=== PATIENT | female | born 1940 | race Caucasian/White ===

== ENCOUNTER 2020-01-04 18:45 | Inpatient (IN) | payer MEDICARE, OTHER ==
[~2020-01-04] VITALS: Ht 162.6 cm; Wt 43.1 kg
[2020-01-04] MEDS ORDERED: ZIPRASIDONE MESYLATE 20 MG VIAL IM ONE ×3 (19:55→22:00)
[2020-01-04 20:07] LABS: BASOPHILS # (AUTO) 0.1 K/uL (0.0-8.0); BASOPHILS % (AUTO) 0.7 % (0.0-2.0); EOSINOPHILS # (AUTO) 0.1 K/uL (0.0-0.7); EOSINOPHILS % (AUTO) 1.2 % (0.0-7.0); HEMATOCRIT 34.3 % (31.2-41.9); HEMOGLOBIN 11.3 g/dL (10.9-14.3); LYMPHOCYTES # (AUTO) 2.1 K/uL (20.0-40.0); LYMPHOCYTES % (AUTO) 22.5 % (20.5-51.5); MEAN CORPUSCULAR HEMOGLOBIN 31.8 uug (24.7-32.8); MEAN CORPUSCULAR HGB CONC 33 g/dL (32.3-35.6); MEAN CORPUSCULAR VOLUME 96.6 fL (75.5-95.3); MONOCYTES # (AUTO) 0.8 K/uL (2.0-10.0); MONOCYTES % (AUTO) 8.8 % (0.0-11.0); NEUTROPHILS # (AUTO) 6.2 K/uL (1.8-8.9); NEUTROPHILS % (AUTO) 66.8 % (38.5-71.5); PLATELET COUNT (AUTO) 190 K/uL (179-408); RED BLOOD CELL COUNT(AUTO) 3.55 MIL/uL (3.63-4.92); WHITE BLOOD COUNT (AUTO) 9.2 K/uL (3.8-11.8)
[2020-01-04 20:12] LABS: CARBON DIOXIDE 29 mmol/L (21-32); CHLORIDE 109 mmol/L (98-107); CREATININE 1.3 mg/dL (0.6-1.3); GLUCOSE 97 mg/dL (74-106); UREA NITROGEN, BLOOD 21 mg/dL (7-18)
[2020-01-04 20:17] LABS: ACETAMINOPHEN < 2.0 ug/mL (10-30); ALANINE AMINOTRANSFERASE 13 U/L (14-59); ALKALINE PHOSPHATASE 83 U/L (50-136); ASPARTATE AMINOTRANSFERASE 14 U/L (15-37); BILIRUBIN,DIRECT 0.1 mg/dL (0.0-0.2); BILIRUBIN,TOTAL 0.3 mg/dL (0.2-1.0); TOTAL PROTEIN, SERUM 7.8 g/dL (6.4-8.2)
--- NOTE | 2020-01-04 20:20 | NUR ---
Medically cleared by DR Carvajal. Called Pinky from PET TEAM to eval patient.
[2020-01-04] MEDS ORDERED: VITA-287 PO (20:32)
[2020-01-04] MEDS ORDERED: MIRT15TA PO (20:32)
[2020-01-04] MEDS ORDERED: DIVA125C2 PO (20:32)
[2020-01-04] MEDS ORDERED: ACET-2154 PO (20:32)
[2020-01-04] MEDS ORDERED: ASCO500P18 PO (20:32)
[2020-01-04] MEDS ORDERED: folic acid PO (20:32)
[2020-01-04] MEDS ORDERED: NITR100C11 PO (20:32)
[2020-01-04] MEDS ORDERED: LEVO100T10 PO (20:32)
[2020-01-04 20:42] LABS: ETHANOL < 3 MG/DL (0-0)
--- NOTE | 2020-01-04 23:09 | NUR ---
Patient in bed, O2 saturation 97% on room air. Patient is not hypoxic and is breathing well.
--- NOTE | 2020-01-05 01:00 | NUR ---
Juju from Lab at [facility] called to provide test results for COVID. Test result = (-).
--- NOTE | 2020-01-05 01:14 | NUR ---
Report given to JAMI Vasquez.
[2020-01-05] MEDS ORDERED: MAG HYDROX/AL HYDROX/SIMETH 30 ML LIQUID UDC PO PRN (01:45)
[2020-01-05] MEDS ORDERED: TEMAZEPAM 7.5 MG CAPSULE PO PRN (01:45)
[2020-01-05] MEDS ORDERED: MAGNESIUM HYDROXIDE 30 ML LIQUID UDC PO PRN (01:45)
[2020-01-05] MEDS ORDERED: ACETAMINOPHEN 325 MG TABLET PO PRN (01:45)
--- NOTE | 2020-01-05 02:01 | NUR ---
Patient transported to MHU in stable condition.
--- NOTE | 2020-01-05 02:25 | NUR ---
GPS/ Admit pt to MHU under the care of Dr. Fraser and Dr. Fulton.
[2020-01-05 02:37] VITALS: BP 161/79
--- NOTE | 2020-01-05 03:08 | NUR ---
Admission Note: 79 y.o. female brought to MHU from ER via gurney accompanied by ER staff. Pt admitted on a 5150 for GD under the care of Dr Fraser and Dr Holm. with a dx of Psychosis. According to the 5150, Pt came to [facility] from [facility] for unmanageable behavior. Pt was loud, screaming, yelling, confused, disorganized, and disoriented. Pt was refusing care at her facility, non-compliant with medications, is paranoid and hearing voices. Pt thinks the FBI is listening to her, and she is leaving the facility at night unsupervised and having verbal altercations with other residents. Pt has poor insight, impaired judgement, and no viable plan for self care. Upon face to face assessment, Pt is alert and oriented to herself only, she received an IM of Geodon 15mg for aggressive and combative behavior in out ER at 2200. Pt appears restless and hyperactive, and states the reason she is here is "for a test." Pt was yelling and screaming upon entering the unit and fixated on her purse. Pt appears to reflect what is on the Hold, as she is violent, aggressive, combative, and refuses to obey instructions for safety. Affect is elevated, mood is anxious, thought process is disorganized, disoriented, and confused. Pt refused any prn or other calming measures and screamed for a short while before falling asleep. Pt denies an access to firearms or any legal hx, No reported h/o current or prior smoking or substance abuse issues. Uncooperative with admission process and unable/unwilling to sign paperwork, co-signed with staff. Skin assessment completed-c/d/i with redness noted to BLE. Medical h/o COPD, Dorsalgia, hypothyroidism, anemia, MDD, bipolar d/o, cataracts, UTI, alzheimer's dementia, and anxiety, NKA noted. Dr Fraser and Dr Holm notified of admission, meds to be reconciled, orders received. Pt belongings inventoried, contraband placed in unit locker. Unable to obtain information and permission for contact information for next of kin notification. Patient Rights handbook and Advisement given to Pt rights and unit rules explained to Pt, she will need reinforcement due to unmanageable behavior. Pt oriented to the unit, the phone, the restrooms, and her room. Q 15 minute rounding initiated for safety.
--- NOTE | 2020-01-05 06:02 | NUR ---
Jeovanny Fitzgerald paged through [email or web address] regarding med recon, he stated he would reconcile.
[2020-01-05 09:06] LABS: THYROID STIMULATING HORMONE 2.199 mIU/mL (0.358-3.740)
[2020-01-05 10:13] VITALS: BP 139/95
--- NOTE | 2020-01-05 10:38 | NUR ---
JUAN DIEGO Public Guardian Contact: JUAN DIEGO left a voicemail for Public Guardian Sandi ([phone]) to discuss treatment and discharge plan, as well as request documentation. Waiting for a call back.
--- NOTE | 2020-01-05 10:38 | NUR ---
JUAN DIEGO Initial Discharge Plan: Patient resides at [facility] [place] [address] . JUAN DIEGO spoke with Janie at the facility who confirmed patient is accepted back upon discharge. Patient has a Public Guardian Sandi ([phone]). JUAN DIEGO will continue to work with patient, family, and MD to ensure a safe and proper discharge plan.
--- NOTE | 2020-01-05 10:40 | NUR ---
Firearms Report: Atmospheric Technician completed and submitted a [employer] firearms report for 5150 grave disability certification. A copy of report has been placed in patient chart.
[2020-01-05] MEDS: ENSURE ENLIVE (VAN) 240 ML LIQUID PO SCH ×2 (12:49→16:40)
[2020-01-05] MEDS: DIVALPROEX SPRINKLE 125 MG CAP.SPRINK PO SCH ×2 (13:56→16:40)
[2020-01-05 16:36] VITALS: BP 112/70
--- NOTE | 2020-01-05 17:49 | NUR ---
patient is confused and disoriented agitated and restless, up to wheel chair attempted to get out of unit at all time,refused to attended in group activity.
[2020-01-05 20:18] VITALS: BP 130/89
--- NOTE | 2020-01-05 22:56 | NUR ---
GPS: Pt.is asleep at this time. In no form of distress noted. Pt.was anxious,restless and was voicing desire to leave the unit. Re-directed and re-assured frequently. Poor insight to present situation. Confused,disoriented. Will continue to monitor.
[2020-01-06] MEDS: LORAZEPAM 0.5 MG TABLET PO PRN ×2 (04:22→22:45)
--- NOTE | 2020-01-06 05:59 | NUR ---
GPS: Pt.is up on a gerichair in front of nurses station for safety. Has episodes of trying to get up unassisted. Has episodes of yelling/screaming. Poor insight to present situation. Confused,disoriented and disorganized. Ativan 0.5mg was given earlier for increased anxiety/agitation. Re-directed frequently. Will continue to monitor.
[2020-01-06 07:02] LABS: BASOPHILS # (AUTO) 0.1 K/uL (0.0-8.0); BASOPHILS % (AUTO) 1.1 % (0.0-2.0); EOSINOPHILS % (AUTO) 0.4 % (0.0-7.0); HEMATOCRIT 33.2 % (31.2-41.9); LYMPHOCYTES # (AUTO) 1.4 K/uL (20.0-40.0); LYMPHOCYTES % (AUTO) 17.9 % (20.5-51.5); MEAN CORPUSCULAR HEMOGLOBIN 32.1 uug (24.7-32.8); MEAN CORPUSCULAR HGB CONC 33 g/dL (32.3-35.6); MEAN CORPUSCULAR VOLUME 97.1 fL (75.5-95.3); MONOCYTES # (AUTO) 0.7 K/uL (2.0-10.0); NEUTROPHILS # (AUTO) 5.6 K/uL (1.8-8.9); NEUTROPHILS % (AUTO) 71.6 % (38.5-71.5); PLATELET COUNT (AUTO) 175 K/uL (179-408); RED BLOOD CELL COUNT(AUTO) 3.42 MIL/uL (3.63-4.92); WHITE BLOOD COUNT (AUTO) 7.9 K/uL (3.8-11.8)
[2020-01-06 07:19] LABS: ALANINE AMINOTRANSFERASE 13 U/L (14-59); ALKALINE PHOSPHATASE 67 U/L (50-136); ASPARTATE AMINOTRANSFERASE 13 U/L (15-37); BILIRUBIN,TOTAL 0.3 mg/dL (0.2-1.0); CARBON DIOXIDE 31 mmol/L (21-32); CHLORIDE 116 mmol/L (98-107); CREATININE 1.2 mg/dL (0.6-1.3); GLUCOSE 111 mg/dL (74-106); MAGNESIUM 2.2 mg/dL (1.8-2.4); POTASSIUM 4.3 mmol/L (3.5-5.1); TOTAL PROTEIN, SERUM 7.3 g/dL (6.4-8.2); UREA NITROGEN, BLOOD 21 mg/dL (7-18); VALPROIC ACID < 3 ug/mL (50-100)
[2020-01-06 07:30] VITALS: BP 120/75
[2020-01-06] MEDS: ENSURE ENLIVE (VAN) 240 ML LIQUID PO SCH ×3 (08:01→17:15)
[2020-01-06] MEDS: DIVALPROEX SPRINKLE 125 MG CAP.SPRINK PO SCH ×3 (08:01→17:15)
[2020-01-06] MEDS: NICOTINE 7 MG/24HR PATCH TD SCH (08:01)
--- NOTE | 2020-01-06 09:05 | NUR ---
JUAN DIEGO Public Guardian Contact: JUAN DIEGO called again left a message for Public Guardian Sandi ([phone]) to discuss treatment and discharge plan, as well as request documentation. Spoke with Michelle who stated she will pass the message for a call back.
[2020-01-06 16:00] VITALS: BP 124/86
--- NOTE | 2020-01-06 18:29 | NUR ---
patient been staying in front of the exit door and needed redirection, patient gets irritated when ask to move away from the exit door, educated patient regarding her DC planning and redirect attention to dining room, patient verbalizes that the Bus is waiting for her
--- NOTE | 2020-01-06 18:59 | NUR ---
patient is Anxious and restless. Confused,disoriented. Poor insight to present situation. up to W/C able to wheel self around unit staying exit door at all time, Fall precautions observed. Re-directed frequently.
[2020-01-06 20:31] VITALS: BP 113/68
--- NOTE | 2020-01-07 07:20 | NUR ---
Patient is anxious and restless. Confused,disoriented. Poor insight to present situation. up to W/C able to wheel self around unit staying exit door at all time, Fall precautions observed. Patient continues to scream and yell redirected patient.
[2020-01-07 07:22] LABS: BASOPHILS # (AUTO) 0.1 K/uL (0.0-8.0); BASOPHILS % (AUTO) 0.9 % (0.0-2.0); EOSINOPHILS # (AUTO) 0.1 K/uL (0.0-0.7); EOSINOPHILS % (AUTO) 0.9 % (0.0-7.0); HEMOGLOBIN 10.8 g/dL (10.9-14.3); LYMPHOCYTES # (AUTO) 1.8 K/uL (20.0-40.0); LYMPHOCYTES % (AUTO) 25.3 % (20.5-51.5); MEAN CORPUSCULAR HEMOGLOBIN 31.6 uug (24.7-32.8); MEAN CORPUSCULAR HGB CONC 33 g/dL (32.3-35.6); MONOCYTES # (AUTO) 0.5 K/uL (2.0-10.0); MONOCYTES % (AUTO) 7.2 % (0.0-11.0); NEUTROPHILS # (AUTO) 4.7 K/uL (1.8-8.9); NEUTROPHILS % (AUTO) 65.7 % (38.5-71.5); PLATELET COUNT (AUTO) 177 K/uL (179-408); RED BLOOD CELL COUNT(AUTO) 3.41 MIL/uL (3.63-4.92); WHITE BLOOD COUNT (AUTO) 7.2 K/uL (3.8-11.8)
[2020-01-07 07:29] LABS: BILIRUBIN,TOTAL 0.2 mg/dL (0.2-1.0); CREATININE 1.2 mg/dL (0.6-1.3); MAGNESIUM 2.4 mg/dL (1.8-2.4); PHOSPHOROUS 3.5 mg/dL (2.5-4.9); POTASSIUM 3.7 mmol/L (3.5-5.1)
[2020-01-07 07:30] VITALS: BP 125/73
--- NOTE | 2020-01-07 08:53 | NUR ---
JUAN DIEGO Public Guardian Contact: JUAN DIEGO received a call back from Ayana assistance for Sandi Probate Conservator from the Public Guardian's office ([phone]). This music writer emailed ([email or web address]) Ayana the Detain and treat form to be filled out and signed, and requested the probate conservatorship documentation.
[2020-01-07] MEDS: LORAZEPAM 0.5 MG TABLET PO PRN (08:59)
[2020-01-07] MEDS: DIVALPROEX SPRINKLE 125 MG CAP.SPRINK PO SCH ×3 (08:59→17:50)
[2020-01-07] MEDS: NICOTINE 7 MG/24HR PATCH TD SCH (09:13)
[2020-01-07] MEDS: ENSURE ENLIVE (VAN) 240 ML LIQUID PO SCH ×3 (09:13→17:50)
[2020-01-07 10:01] LABS: *BILIRUBIN,URIN NEGATIVE (NEGATIVE); *BLOOD, URINE NEGATIVE (NEGATIVE); *CLARITY,URINE SLIGHTLY CLOUDY (CLEAR); *COLOR,URINE LIGHT YELLOW (YELLOW); *KETONES,URINE TRACE (NEGATIVE); *UROBILINOGEN,URINE 0.2 E.U./dl (NORMAL); LEUKOCYTE ESTERASE ,URINE NEGATIVE (NEGATIVE); NITRITE, URINE NEGATIVE (NEGATIVE); UGLUCOSE NEGATIVE (NEGATIVE)
[2020-01-07 10:58] LABS: *CREATININE,URINE 61.7 mg/dL (30-125); *URINE TOTAL PROTEIN RANDOM 27.6 mg/dL (<150/24HR)
--- NOTE | 2020-01-07 14:26 | NUR ---
Gps/Water Pump Servicer- OOB to her wheel chair, fluids offered, encouraged, monitor safety , tends to stay by the door .
[2020-01-07 16:00] VITALS: BP 128/79
[2020-01-07 20:00] VITALS: BP 112/75
[2020-01-07] MEDS ORDERED: QUETIAPINE FUMARATE 25 MG TABLET PO SCH (21:00)
[2020-01-08 07:30] VITALS: BP 112/75
[2020-01-08] MEDS: ENSURE ENLIVE (VAN) 240 ML LIQUID PO SCH ×3 (08:19→16:12)
[2020-01-08] MEDS: DIVALPROEX SPRINKLE 125 MG CAP.SPRINK PO SCH ×3 (08:19→16:12)
[2020-01-08] MEDS: NICOTINE 7 MG/24HR PATCH TD SCH (08:19)
[2020-01-08] MEDS: LORAZEPAM 0.5 MG TABLET PO PRN (10:35)
[2020-01-08 16:00] VITALS: BP 106/69
--- NOTE | 2020-01-08 16:00 | NUR ---
Gps/Job Placement Counselor- Easily gets agitated, tends to stay by the front door, discouraged from doing so,, upset when redirected back to the activity room. Compliant with her pm meds. needed min. prompting. Safety reviewed and continue to emphasized.
[2020-01-08 20:00] VITALS: BP 108/79
[2020-01-08] MEDS: QUETIAPINE FUMARATE 25 MG TABLET PO SCH (20:55)
--- NOTE | 2020-01-08 22:55 | NUR ---
GPS/Rn - Pt was received sitting up in w/c in her room. Initially pt was irritated when asked how she was, pt responded with belittling and unimportant. Later on during med pass pt used smart words and condescending behavior towards staffs. Pt was oriented to reality but immediately acted as though she do not want to be touched by this machine sign writer. Patient mood swing rapidly within few minute saying thank you and praising again. Pt is med compliant and no other excessive behavior noted. Will continue to monitor.
[2020-01-09] MEDS: LEVOTHYROXINE SODIUM 100 MCG TABLET PO SCH ×2 (07:00→08:41)
[2020-01-09 07:30] VITALS: BP 116/79
[2020-01-09] MEDS: NICOTINE 7 MG/24HR PATCH TD SCH (08:40)
[2020-01-09] MEDS: DIVALPROEX SPRINKLE 125 MG CAP.SPRINK PO SCH ×3 (08:40→17:27)
[2020-01-09] MEDS: ENSURE ENLIVE (VAN) 240 ML LIQUID PO SCH ×3 (08:41→17:27)
[2020-01-09] MEDS: VITAMIN B COMPLEX 1 TABLET PO SCH (09:56)
--- NOTE | 2020-01-09 14:50 | NUR ---
GPS: Nursing Notes: Thought Disorder: Patient is awake and responding to her name, impaired judgment, episodes of shouting "No body wants to help me..", when asked what she needs, stated "I am getting ..", when asked with who, stated "It is not your business.. He is a doctor..", disruptive at times by shouting, redirected and reoriented during shift, poor impulse control, disorganized, continue with treatment plan.
[2020-01-09 16:46] VITALS: BP 115/77
[2020-01-09 20:00] VITALS: BP 122/87
[2020-01-09] MEDS: QUETIAPINE FUMARATE 25 MG TABLET PO SCH (20:35)
[2020-01-09] MEDS: AMOXICILLIN-CLAVUL 500-125MG TABLET PO SCH (20:35)
[2020-01-09] MEDS: LORAZEPAM 0.5 MG TABLET PO PRN (23:13)
[2020-01-10] MEDS: LEVOTHYROXINE SODIUM 100 MCG TABLET PO SCH (06:20)
--- NOTE | 2020-01-10 06:33 | NUR ---
Patient slept most of the night. Antibiotics started per order for UTI. Patient is medication compliant. Once during the night patient was yelling d/t " Having a nightmare ", otherwise was quiet .Patient is noted to be incontinent of urine, deon care provided. This patient appears to be confused at times and needs reorientation. No acute distress, patient up to wheelchair this am. Monitoring for safety and behavior escalation and aggression.
[2020-01-10 07:05] LABS: BASOPHILS % (AUTO) 0.7 % (0.0-2.0); EOSINOPHILS # (AUTO) 0.1 K/uL (0.0-0.7); EOSINOPHILS % (AUTO) 2.3 % (0.0-7.0); HEMATOCRIT 35.7 % (31.2-41.9); HEMOGLOBIN 11.5 g/dL (10.9-14.3); LYMPHOCYTES # (AUTO) 1.8 K/uL (20.0-40.0); LYMPHOCYTES % (AUTO) 29.5 % (20.5-51.5); MEAN CORPUSCULAR HEMOGLOBIN 31.2 uug (24.7-32.8); MEAN CORPUSCULAR HGB CONC 32 g/dL (32.3-35.6); MEAN CORPUSCULAR VOLUME 97.2 fL (75.5-95.3); MONOCYTES # (AUTO) 0.4 K/uL (2.0-10.0); MONOCYTES % (AUTO) 7.3 % (0.0-11.0); NEUTROPHILS # (AUTO) 3.7 K/uL (1.8-8.9); NEUTROPHILS % (AUTO) 60.2 % (38.5-71.5); PLATELET COUNT (AUTO) 195 K/uL (179-408); RED BLOOD CELL COUNT(AUTO) 3.67 MIL/uL (3.63-4.92); WHITE BLOOD COUNT (AUTO) 6.1 K/uL (3.8-11.8)
[2020-01-10 07:11] LABS: CREATININE 1.1 mg/dL (0.6-1.3); POTASSIUM 3.8 mmol/L (3.5-5.1)
[2020-01-10 07:57] VITALS: BP 110/75
[2020-01-10] MEDS: DIVALPROEX SPRINKLE 125 MG CAP.SPRINK PO SCH ×3 (08:53→16:27)
[2020-01-10] MEDS: NICOTINE 7 MG/24HR PATCH TD SCH (08:53)
[2020-01-10] MEDS: VITAMIN B COMPLEX 1 TABLET PO SCH (08:53)
[2020-01-10] MEDS: AMOXICILLIN-CLAVUL 500-125MG TABLET PO SCH (08:53)
[2020-01-10] MEDS: ENSURE ENLIVE (VAN) 240 ML LIQUID PO SCH ×3 (08:54→16:28)
[2020-01-10 16:56] VITALS: BP 107/74
[2020-01-10] MEDS: QUETIAPINE FUMARATE 25 MG TABLET PO SCH (20:53)
[2020-01-10 21:23] VITALS: BP 112/69
[2020-01-11] MEDS: LEVOTHYROXINE SODIUM 100 MCG TABLET PO SCH (06:04)
[2020-01-11 07:30] VITALS: BP 122/78
[2020-01-11] MEDS: VITAMIN B COMPLEX 1 TABLET PO SCH (08:38)
[2020-01-11] MEDS: NICOTINE 7 MG/24HR PATCH TD SCH (08:38)
[2020-01-11] MEDS: ENSURE ENLIVE (VAN) 240 ML LIQUID PO SCH ×3 (08:38→17:03)
[2020-01-11] MEDS: DIVALPROEX SPRINKLE 125 MG CAP.SPRINK PO SCH ×4 (08:38→20:14)
--- NOTE | 2020-01-11 10:46 | NUR ---
PC Hearing: Probable cause upheld for Gravely disabled.
[2020-01-11] MEDS: QUETIAPINE FUMARATE 25 MG TABLET PO SCH (10:52)
[2020-01-11 15:18] VITALS: BP 122/75
[2020-01-11 20:52] VITALS: BP 114/76
[2020-01-11] MEDS ORDERED: QUETIAPINE FUMARATE 25 MG TABLET PO SCH (21:00)
[2020-01-11] MEDS: LORAZEPAM 0.5 MG TABLET PO PRN (22:03)
[2020-01-12] MEDS: LORAZEPAM 0.5 MG TABLET PO PRN
--- NOTE | 2020-01-12 02:41 | NUR ---
RECEIVED PATIENT IN BED AWAKE.SHE WAS DISRUPTIVE AND COULD BE HEARD OCCASIONALLY YELLING. WHEN ASKED TO TONE IT DOWN SHE CALLED REHABILITATION PROGRAM MANAGER "BITCH.WHY DO YOU KEEP WAKING ME UP' . CONFUSED DISORGANIZED WITH POOR IMPULSE CONTROL.SHE HELD AN IMAGINARY PHONE TO HER EAR CALLING HER DAUGHTER.SHE BECOMES IRRITABLE WHEN NEEDS ARE NOT PROMPTLY MET. GIVEN TAB ATIVAN AT 00;00 FOR INCREASED AGITATION. SHE IS HOWEVER MEDICATION COMPLIANT WITH SOME PROMPTING. WILL CONTINUE TO MONITOR.
[2020-01-12] MEDS: LEVOTHYROXINE SODIUM 100 MCG TABLET PO SCH (06:19)
--- NOTE | 2020-01-12 06:45 | NUR ---
SLEPT FOR 6:15HOURS. SHE IS UP WITH OCCASIONAL YELLING.
[2020-01-12 07:30] VITALS: BP 112/74
[2020-01-12] MEDS: VITAMIN B COMPLEX 1 TABLET PO SCH (08:37)
[2020-01-12] MEDS: NICOTINE 7 MG/24HR PATCH TD SCH (08:37)
[2020-01-12] MEDS: QUETIAPINE FUMARATE 25 MG TABLET PO SCH ×3 (08:37→17:41)
[2020-01-12] MEDS: DIVALPROEX SPRINKLE 125 MG CAP.SPRINK PO SCH ×3 (08:37→20:04)
[2020-01-12] MEDS: ENSURE ENLIVE (VAN) 240 ML LIQUID PO SCH ×3 (08:38→17:41)
[2020-01-12 16:17] VITALS: BP 105/64
[2020-01-12 20:31] VITALS: BP 109/73
[2020-01-12] MEDS ORDERED: QUETIAPINE FUMARATE 25 MG TABLET PO SCH (21:00)
--- NOTE | 2020-01-12 22:45 | NUR ---
RECEIVED PATIENT IN BED AWAKE.SHE WAS DISRUPTIVE WITH OCCASIONALLY YELLING. CONFUSED DISORGANIZED WITH POOR IMPULSE CONTROL.SHE BECOMES IRRITABLE WHEN NEEDS ARE NOT PROMPTLY MET SHE IS COMPLIANT WITH MEDICATION SOME PROMPTING NOTED. WILL CONTINUE TO MONITOR. SAFE ENVIRONMENT, FREQUENT ROUNDING, AND CLUTTER FREE ENVIRONMENT. BED IN LOWEST POSITION, BED LOCKED, AND BED ALARM ON WHILE IN BED.
[2020-01-13] MEDS: LEVOTHYROXINE SODIUM 100 MCG TABLET PO SCH (06:41)
[2020-01-13 07:30] VITALS: BP 111/88
[2020-01-13] MEDS: QUETIAPINE FUMARATE 25 MG TABLET PO SCH (08:30)
[2020-01-13] MEDS: VITAMIN B COMPLEX 1 TABLET PO SCH (08:32)
[2020-01-13] MEDS: DIVALPROEX SPRINKLE 125 MG CAP.SPRINK PO SCH ×3 (08:32→20:01)
[2020-01-13] MEDS: NICOTINE 7 MG/24HR PATCH TD SCH (08:34)
[2020-01-13] MEDS: ENSURE ENLIVE (VAN) 240 ML LIQUID PO SCH ×3 (08:36→18:16)
[2020-01-13] MEDS ORDERED: QUETIAPINE FUMARATE 25 MG TABLET PO SCH ×2 (13:00→21:00)
[2020-01-13] MEDS: BENZTROPINE MESYLATE 0.5 MG TABLET PO SCH ×2 (13:15→20:01)
[2020-01-13] MEDS: risperiDONE-M 0.5 MG TAB.RAPDIS PO SCH ×2 (13:16→20:02)
[2020-01-13 16:00] VITALS: BP 98/81
[2020-01-13 20:00] VITALS: BP 118/74
[2020-01-14] MEDS: LEVOTHYROXINE SODIUM 100 MCG TABLET PO SCH (06:43)
[2020-01-14 07:30] VITALS: BP 115/88
[2020-01-14 08:02] LABS: BASOPHILS # (AUTO) 0.1 K/uL (0.0-8.0); BASOPHILS % (AUTO) 1.1 % (0.0-2.0); EOSINOPHILS # (AUTO) 0.3 K/uL (0.0-0.7); EOSINOPHILS % (AUTO) 5.7 % (0.0-7.0); HEMATOCRIT 33.1 % (31.2-41.9); HEMOGLOBIN 10.8 g/dL (10.9-14.3); LYMPHOCYTES # (AUTO) 1.4 K/uL (20.0-40.0); LYMPHOCYTES % (AUTO) 24.9 % (20.5-51.5); MEAN CORPUSCULAR HEMOGLOBIN 31.6 uug (24.7-32.8); MEAN CORPUSCULAR HGB CONC 33 g/dL (32.3-35.6); MEAN CORPUSCULAR VOLUME 96.4 fL (75.5-95.3); MONOCYTES # (AUTO) 0.4 K/uL (2.0-10.0); MONOCYTES % (AUTO) 7.8 % (0.0-11.0); NEUTROPHILS # (AUTO) 3.3 K/uL (1.8-8.9); NEUTROPHILS % (AUTO) 60.5 % (38.5-71.5); PLATELET COUNT (AUTO) 171 K/uL (179-408); RED BLOOD CELL COUNT(AUTO) 3.43 MIL/uL (3.63-4.92); WHITE BLOOD COUNT (AUTO) 5.4 K/uL (3.8-11.8)
[2020-01-14 08:26] LABS: BILIRUBIN,TOTAL 0.2 mg/dL (0.2-1.0); CREATININE 1.1 mg/dL (0.6-1.3); POTASSIUM 4.6 mmol/L (3.5-5.1)
[2020-01-14] MEDS: DIVALPROEX SPRINKLE 125 MG CAP.SPRINK PO SCH ×3 (09:16→19:59)
[2020-01-14] MEDS: BENZTROPINE MESYLATE 0.5 MG TABLET PO SCH ×2 (09:17→19:59)
[2020-01-14] MEDS: ENSURE ENLIVE (VAN) 240 ML LIQUID PO SCH ×3 (09:17→17:50)
[2020-01-14] MEDS: risperiDONE-M 0.5 MG TAB.RAPDIS PO SCH ×2 (09:17→19:59)
[2020-01-14] MEDS: VITAMIN B COMPLEX 1 TABLET PO SCH (09:17)
[2020-01-14] MEDS: NICOTINE 7 MG/24HR PATCH TD SCH (09:20)
[2020-01-14] MEDS: LORAZEPAM 0.5 MG TABLET PO PRN (10:00)
[2020-01-14 20:00] VITALS: BP 105/68
[2020-01-15] MEDS: LORAZEPAM 0.5 MG TABLET PO PRN ×2 (01:33→10:10)
[2020-01-15] MEDS: LEVOTHYROXINE SODIUM 100 MCG TABLET PO SCH (06:43)
[2020-01-15 07:30] VITALS: BP 101/70
[2020-01-15] MEDS ORDERED: risperiDONE-M 0.5 MG TAB.RAPDIS PO SCH (08:00)
[2020-01-15] MEDS: VITAMIN B COMPLEX 1 TABLET PO SCH (08:02)
[2020-01-15] MEDS: NICOTINE 7 MG/24HR PATCH TD SCH (08:03)
[2020-01-15] MEDS: ENSURE ENLIVE (VAN) 240 ML LIQUID PO SCH ×3 (08:03→16:35)
[2020-01-15] MEDS: DIVALPROEX SPRINKLE 125 MG CAP.SPRINK PO SCH ×3 (08:03→21:02)
[2020-01-15] MEDS: BENZTROPINE MESYLATE 0.5 MG TABLET PO SCH ×2 (08:03→21:02)
[2020-01-15] MEDS: risperiDONE-M 0.5 MG TAB.RAPDIS PO SCH ×2 (13:53→21:02)
[2020-01-15 15:21] VITALS: BP 118/73
[2020-01-15 20:13] VITALS: BP 112/61
[2020-01-16 07:30] VITALS: BP 124/67
[2020-01-16] MEDS: BENZTROPINE MESYLATE 0.5 MG TABLET PO SCH ×2 (08:08→20:28)
[2020-01-16] MEDS: LEVOTHYROXINE SODIUM 100 MCG TABLET PO SCH (08:08)
[2020-01-16] MEDS: DIVALPROEX SPRINKLE 125 MG CAP.SPRINK PO SCH ×3 (08:08→20:27)
[2020-01-16] MEDS: risperiDONE-M 0.5 MG TAB.RAPDIS PO SCH ×3 (08:08→20:28)
[2020-01-16] MEDS: NICOTINE 7 MG/24HR PATCH TD SCH (08:09)
[2020-01-16] MEDS: ENSURE ENLIVE (VAN) 240 ML LIQUID PO SCH ×3 (08:09→17:06)
[2020-01-16] MEDS: VITAMIN B COMPLEX 1 TABLET PO SCH (08:10)
[2020-01-16 09:41] LABS: BASOPHILS % (AUTO) 0.8 % (0.0-2.0); EOSINOPHILS # (AUTO) 0.3 K/uL (0.0-0.7); EOSINOPHILS % (AUTO) 5.8 % (0.0-7.0); HEMATOCRIT 30.6 % (31.2-41.9); HEMOGLOBIN 9.9 g/dL (10.9-14.3); LYMPHOCYTES # (AUTO) 1.1 K/uL (20.0-40.0); LYMPHOCYTES % (AUTO) 21.5 % (20.5-51.5); MEAN CORPUSCULAR HEMOGLOBIN 31.3 uug (24.7-32.8); MEAN CORPUSCULAR HGB CONC 32 g/dL (32.3-35.6); MEAN CORPUSCULAR VOLUME 96.7 fL (75.5-95.3); MONOCYTES # (AUTO) 0.4 K/uL (2.0-10.0); MONOCYTES % (AUTO) 8.2 % (0.0-11.0); NEUTROPHILS # (AUTO) 3.2 K/uL (1.8-8.9); NEUTROPHILS % (AUTO) 63.7 % (38.5-71.5); PLATELET COUNT (AUTO) 158 K/uL (179-408); RED BLOOD CELL COUNT(AUTO) 3.17 MIL/uL (3.63-4.92); WHITE BLOOD COUNT (AUTO) 5.1 K/uL (3.8-11.8)
[2020-01-16 09:54] LABS: ALANINE AMINOTRANSFERASE 9 U/L (14-59); ALKALINE PHOSPHATASE 68 U/L (50-136); ASPARTATE AMINOTRANSFERASE 12 U/L (15-37); BILIRUBIN,TOTAL 0.2 mg/dL (0.2-1.0); CARBON DIOXIDE 32 mmol/L (21-32); CHLORIDE 106 mmol/L (98-107); CREATININE 1.4 mg/dL (0.6-1.3); GLUCOSE 138 mg/dL (74-106); MAGNESIUM 2.2 mg/dL (1.8-2.4); PHOSPHOROUS 3.6 mg/dL (2.5-4.9); POTASSIUM 4.6 mmol/L (3.5-5.1); TOTAL PROTEIN, SERUM 6.4 g/dL (6.4-8.2); UREA NITROGEN, BLOOD 37 mg/dL (7-18)
[2020-01-16 15:57] VITALS: BP 132/84
[2020-01-16 20:00] VITALS: BP 112/69
[2020-01-16] MEDS: LORAZEPAM 0.5 MG TABLET PO PRN (23:51)
[2020-01-17] MEDS: LEVOTHYROXINE SODIUM 100 MCG TABLET PO SCH (06:10)
[2020-01-17 06:53] LABS: CREATININE 1.3 mg/dL (0.6-1.3); POTASSIUM 4.6 mmol/L (3.5-5.1)
[2020-01-17 07:21] LABS: BASOPHILS % (AUTO) 0.7 % (0.0-2.0); EOSINOPHILS # (AUTO) 0.4 K/uL (0.0-0.7); EOSINOPHILS % (AUTO) 6.4 % (0.0-7.0); HEMATOCRIT 30.4 % (31.2-41.9); HEMOGLOBIN 9.8 g/dL (10.9-14.3); LYMPHOCYTES % (AUTO) 33.6 % (20.5-51.5); MEAN CORPUSCULAR HEMOGLOBIN 31.2 uug (24.7-32.8); MEAN CORPUSCULAR HGB CONC 32 g/dL (32.3-35.6); MEAN CORPUSCULAR VOLUME 96.8 fL (75.5-95.3); MONOCYTES # (AUTO) 0.6 K/uL (2.0-10.0); MONOCYTES % (AUTO) 9.3 % (0.0-11.0); PLATELET COUNT (AUTO) 122 K/uL (179-408); RED BLOOD CELL COUNT(AUTO) 3.14 MIL/uL (3.63-4.92)
[2020-01-17 07:30] VITALS: BP 101/77
[2020-01-17] MEDS: NICOTINE 7 MG/24HR PATCH TD SCH (09:06)
[2020-01-17] MEDS: BENZTROPINE MESYLATE 0.5 MG TABLET PO SCH ×2 (09:07→20:25)
[2020-01-17] MEDS: risperiDONE-M 0.5 MG TAB.RAPDIS PO SCH ×3 (09:07→20:25)
[2020-01-17] MEDS: VITAMIN B COMPLEX 1 TABLET PO SCH (09:07)
[2020-01-17] MEDS: DIVALPROEX SPRINKLE 125 MG CAP.SPRINK PO SCH ×3 (09:18→20:25)
[2020-01-17] MEDS: ENSURE ENLIVE (VAN) 240 ML LIQUID PO SCH ×3 (09:25→16:23)
[2020-01-17 16:00] VITALS: BP 123/84
--- NOTE | 2020-01-17 18:58 | NUR ---
Left pt. sleeping in bed. vitals stable no reportable discomfort. AAox3 compliant with care.
[2020-01-17 20:00] VITALS: BP 117/63
[2020-01-18] MEDS: LORAZEPAM 0.5 MG TABLET PO PRN (01:07)
[2020-01-18] MEDS: LEVOTHYROXINE SODIUM 100 MCG TABLET PO SCH (06:08)
[2020-01-18 07:30] VITALS: BP 117/76
[2020-01-18] MEDS: risperiDONE-M 0.5 MG TAB.RAPDIS PO SCH ×3 (09:02→20:16)
[2020-01-18] MEDS: BENZTROPINE MESYLATE 0.5 MG TABLET PO SCH ×2 (09:02→20:16)
[2020-01-18] MEDS: DIVALPROEX SPRINKLE 125 MG CAP.SPRINK PO SCH ×3 (09:02→20:15)
[2020-01-18] MEDS: VITAMIN B COMPLEX 1 TABLET PO SCH (09:02)
[2020-01-18] MEDS: NICOTINE 7 MG/24HR PATCH TD SCH (09:02)
[2020-01-18] MEDS: ENSURE ENLIVE (VAN) 240 ML LIQUID PO SCH ×3 (09:03→16:24)
--- NOTE | 2020-01-18 13:07 | NUR ---
JUAN DIEGO Public Guardian Contact: JUAN DIEGO contacted Ayana bilingual medical assistant for Sandi Probate Conservator from the Public Guardian's office ([phone]) to inform her pt will be discharged tomorrow 01/19/20 back to [facility].
--- NOTE | 2020-01-18 14:59 | NUR ---
INDIVIDUAL INTERVENTION: SW attempted to encouraged pt to attend group therapy on this present day. Pt was asleep and not roused by verbal cues.
[2020-01-18 15:24] VITALS: BP 126/81
[2020-01-18 21:24] VITALS: BP 97/65
--- NOTE | 2020-01-19 00:44 | NUR ---
RECEIVED PATIENT IN BED SLEEPING INTERMITTENTLY. COULD BE HEARD OCCASIONALLY YELLING. CONFUSED, DISORGANIZED WITH POOR IMPULSE CONTROL. HOWEVER COMPLIANT WITH MEDICATION WITH SOME PROMPTING. SAFE ENVIRONMENT PROVIDED WITH FREQUENT ROUNDING. WILL CONTINUE TO MONITOR.
[2020-01-19] MEDS: LEVOTHYROXINE SODIUM 100 MCG TABLET PO SCH (06:15)
--- NOTE | 2020-01-19 06:55 | NUR ---
SLEPT FOR 8:5 HOURS. MADE COMFORTABLE AND DRY IN BED.
[2020-01-19 07:30] VITALS: BP 115/85
[2020-01-19] MEDS: DIVALPROEX SPRINKLE 125 MG CAP.SPRINK PO SCH (08:27)
[2020-01-19] MEDS: BENZTROPINE MESYLATE 0.5 MG TABLET PO SCH (08:27)
[2020-01-19] MEDS: risperiDONE-M 0.5 MG TAB.RAPDIS PO SCH ×2 (08:27→12:39)
[2020-01-19] MEDS: VITAMIN B COMPLEX 1 TABLET PO SCH (08:27)
[2020-01-19] MEDS: NICOTINE 7 MG/24HR PATCH TD SCH (08:27)
[2020-01-19] MEDS: ENSURE ENLIVE (VAN) 240 ML LIQUID PO SCH ×2 (08:29→12:40)
--- NOTE | 2020-01-19 10:33 | NUR ---
SW DISCHARGE NOTE: Pt will be discharged at 3:00pm via facility transport to [facility] ([facility] located at [address] [place] [id number] . Sandi Probate Conservator from the Public Guardian's office ([phone]) has been notified. Pt is alert and oriented x2, to self and place. Pt is ambulatory and appears appropriately dressed and groomed. Pts mood is anxious with congruent affect. Pt denied visual/auditory hallucinations and denied suicidal/homicidal ideation. Pt will be under the care of Psychiatrist: Dr. Reshma Squires [address], [place], [place] [address] [phone] and Digital Assistant: Dr. Lugo located at [address] [place] [address] [id number], [place] [address]; . The multidisciplinary exit care form was done, printed, signed, and given to the patient.
--- NOTE | 2020-01-19 14:30 | NUR ---
GPS: Nursing Notes: Discharge Notes: Patient is awake and responding to her name, gets easily irritable when assisting her with ADL's, moving around on w/c, compliant with her medications, needs assistance with ADL's, following staff directions, denies SI/HI, denies AH/VH, denies SOB, denies pain or discomfort at this time, discharge to [facility] at [address] [facility], [place], [place] [id number] , report given to charge nurse Brooklyn, transported to [facility] via facility's transportation, patient's package given to facility's taxi driver, patient took all her belongings with her. Pt will be under the care of Psychiatrist: Dr. Reshma Squires [address], [place] [address] [phone] and Electroencephalogram Technologist: Dr. Lugo located at [address] [place] [address] [id number], [place] [address]; .
== END 2020-01-19 14:30 | DRG 885 ==
LOC: ER 18:45 → GPS 23:55
PROVIDERS: ADMIT Psychiatry & Neurology Psychosomatic Medicine
DX: F39 Unspecified mood [affective] disorder (principal); F01.50 Vascular dementia, unspecified severity, without behavioral disturbance, psychotic disturbance, mood disturbance, and anxiety; N17.0 Acute kidney failure with tubular necrosis; N18.9 Chronic kidney disease, unspecified; B95.2 Enterococcus as the cause of diseases classified elsewhere; E87.0 Hyperosmolality and hypernatremia; N39.0 Urinary tract infection, site not specified; E44.0 Moderate protein-calorie malnutrition; Z68.1 Body mass index [BMI] 19.9 or less, adult; E03.9 Hypothyroidism, unspecified; G30.9 Alzheimer's disease, unspecified; J44.9 Chronic obstructive pulmonary disease, unspecified; D64.9 Anemia, unspecified; F32.9 Major depressive disorder, single episode, unspecified; Z73.6 Limitation of activities due to disability; F25.9 Schizoaffective disorder, unspecified; E86.1 Hypovolemia; E88.09 Other disorders of plasma-protein metabolism, not elsewhere classified; M62.50 Muscle wasting and atrophy, not elsewhere classified, unspecified site; F02.80 Dementia in other diseases classified elsewhere, unspecified severity, without behavioral disturbance, psychotic disturbance, mood disturbance, and anxiety
CPT/HCPCS: 36415; 80164; 83735; 84100; 84156; 84300; 84443; 85025; 87077; 87086; 93005; A4663; A9150; G0480; J0290; J3486